=== PATIENT | female | born 1960 | race Asian ===

== ENCOUNTER → 2018-06-09 | Outpatient (CLI) | payer OTHER ==
[~2018-06-09] MED LIST: IOPAMIDOL 370 MG/ML 200 ML INFUS..BTL INJ ONE; SODIUM CHLORIDE 0.9% 250ML 250 ML ONE
[2018-06-09 10:00] LABS: BLOOD UREA NITROGEN 18 mg/dL (7-26); BUN/CREATININE RATIO 19 (6-25); CREATININE, SERUM 0.94 mg/dL (0.57-1.11); EST GLOMERULAR FILTRATION RATE > 60 ML/MIN (60-)
--- NOTE | 2018-06-09 12:13 | Diagnostic Imaging Report ---
EXAM: CT abdomen and pelvis without and with contrast - Hematuria protocol INDICATION: Microscopic hematuria. COMPARISON: None. TECHNIQUE: Abdomen and pelvis were scanned in prone position without and with contrast. Delayed phase imaging obtained. Coronal and sagittal reformations were obtained. Routine protocol was performed. Scan was performed when during portal venous phase. IV CONTRAST: 100 cc of Isovue 370. ORAL CONTRAST: Water RADIATION DOSE: Total DLP: 483.4mGy*cm COMPLICATIONS: None FINDINGS: LINES and TUBES: None. LOWER THORAX: Unremarkable. HEPATOBILIARY: No focal hepatic lesions. No biliary ductal dilation. GALLBLADDER: No radio-opaque stones or sludge. No wall thickening. SPLEEN: No splenomegaly. PANCREAS: No focal masses or ductal dilatation. ADRENALS: No adrenal nodules KIDNEYS/URETERS: Kidneys enhance symmetrically. No hydronephrosis. No evidence of solid mass. There is a 1.2 cm right mid pole renal cyst. The right ureter and the majority of the left ureter are opacified and demonstrate no specific evidence of urothelial lesion. No evidence of hydronephrosis. GI TRACT: No abnormal distention, wall thickening, or evidence of bowel obstruction. Appendix is unremarkable. PELVIS: The bladder is opacified on delayed images and demonstrates no evidence of urothelial lesion. Punctate foci of gas are seen along the posterior aspect of the bladder. There is fibroid uterus. LYMPH NODES: No lymphadenopathy. VESSELS: Unremarkable. PERITONEUM / RETROPERITONEUM: No free air or fluid. BONES AND SOFT TISSUES: No acute bony findings. A sclerotic focus within the right acetabulum is nonspecific, but could represent a bone island. IMPRESSION: No evidence of renal mass, stone, or urothelial lesion. Punctate foci of gas seen along the posterior aspect of the bladder, which could reflect recent instrumentation or infectious process. This can be correlated with clinical history. Fibroid uterus. Signed by: Dr. Antonio Bettencourt MD on 06/09/2018 12:10 PM
== END ==
LOC: CT 07:58 → EDBD 08:00
PROVIDERS: ATTEND Urology
DX: R31.9 Hematuria, unspecified (principal)
CPT/HCPCS: 36415; 74178; 82565; 84520; J7050; Q9967

== ENCOUNTER → 2018-09-23 | Outpatient (CLI) | payer OTHER ==
--- NOTE | 2018-09-23 17:05 | Diagnostic Imaging Report ---
EXAM: Renal Ultrasound INDICATION: Renal cyst. COMPARISON: CT abdomen/pelvis 06/09/2018. TECHNIQUE: Transverse and longitudinal images of the kidneys and bladder were obtained. FINDINGS: Right Kidney: Length: Measures 10.7 x 5.2 x 4.8 cm Appearance: Increased echogenicity. Collecting system: No hydronephrosis Stones: None Cyst/Mass: There is a simple appearing anechoic cyst in the right mid pole kidney, measuring up to 1.6 cm. No evidence of solid mass. Left Kidney: Length: Measures 10.7 x 4.7 x 4.2 cm Appearance: Increased echogenicity. Collecting system: No hydronephrosis Stones: None Cyst/Mass: None Bladder: Unremarkable in appearance. Bilateral ureteral jets are present. IMPRESSION: Simple 1.6 cm anechoic cyst in the right mid pole kidney. Increased bilateral renal echogenicity, suggestive of medical renal disease. Signed by: Dr. Antonio Bettencourt MD on 09/23/2018 5:01 PM
== END ==
LOC: US 14:41
PROVIDERS: ATTEND Urology
DX: N28.1 Cyst of kidney, acquired (principal)
CPT/HCPCS: 76770